=== PATIENT | male | born 1950 | race Caucasian/White ===

== ENCOUNTER 2022-06-06 13:14 | Outpatient (CLI) | payer MEDICARE, SELFPAY ==
--- NOTE | ~2022-06-06 | MR_ITS ---
EXAMINATION: MR pelvis wo/w con INDICATION: Malignant neoplasm of the prostate TECHNIQUE: 3D Axial T2 Cube, Axial 2D FIESTA, Axial 2D FIESTA FatSat, Coronal SSFSE ARC, Axial and Co carlos 2D FIESTA FatSat, Axial T2 FS, Axial SSFSE BH ARC, Axial 3D DualEcho BH, Axial SSFSE-IR Arnol, Ax ial DWI b=600, pre and dynamic postcontrast Axial LAVA ARC, WATER:POST Cor LAVA-FLEX COMPARISON: None available CONTRAST: Multihance, 20 cc FINDINGS: There are changes of prostatectomy. There are no pathologically enlarged pelvic lymph nodes . No abnormal enhancement is present after contrast administration. There are no dilated loops of bow el. There is severe lumbar spondylosis at L5-S1. The appendix is normal. IMPRESSION: 1. Changes of prostatectomy without evidence of metastatic disease. Reviewed, dictated and finalized at location F. E RN BSN
== END 2022-06-06 13:15 | disposition home or self-care (01) ==
PROVIDERS: Visit Provider Radiology Radiation Oncology
DX: C61 Malignant neoplasm of prostate (principal)
CPT/HCPCS: 72197; A9577